=== PATIENT | male | born 1965 | race Caucasian/White ===

== ENCOUNTER 2018-08-04 18:53 | Emergency (ER) | payer BC ==
[2018-08-04] MEDS ORDERED: KETOROLAC TROMETHAMINE 60 MG/2 ML SDV IM ONE (20:15)
[2018-08-04] MEDS ORDERED: ONDANSETRON 4 MG TAB.RAPDIS PO ONE (20:15)
[2018-08-04] MEDS ORDERED: OXYCODONE-ACETAMINOPHEN 5-325 MG TABLET PO ONE (20:15)
--- NOTE | 2018-08-04 20:18 | ER Document Report ---
HPI - HPI Patient complains to provider of: Lower back pain Time Seen by Provider: 08/04/18 19:54 Pain Level: 5 Context: Patient is a 52-year-old male that comes to the emergency department for chief complaint of lower back pain on the left side that goes down the back of his leg on the left side, he states he is also started to feel in his left thigh. He denies any numbness, difficulty urinating, incontinence, fever/chills. He denies injury but he states that he had similar symptoms in the past and eventually got a discectomy. He follows with orthopedics in [place]. He denies any other surgeries, he takes no daily medications, denies smoking, alcohol, recreational drugs. - CONSTITUTIONAL Constitutional: DENIES: Fever, Chills - MUSCULOSKELETAL Musculoskeletal: REPORTS: Extremity pain - left leg Past Medical History - General Information source: Patient, Relative - Social History Smoking Status: Never Smoker Frequency of alcohol use: None Drug Abuse: None Lives with: Spouse/Significant other Family History: Reviewed & Not Pertinent Patient has suicidal ideation: No Patient has homicidal ideation: No Renal/ Medical History: Reports: Hx Kidney Stones. Denies: Hx Peritoneal Dialysis Past Surgical History: Reports: Hx Orthopedic Surgery - Lumbar discectomy - Immunizations Hx Diphtheria, Pertussis, Tetanus Vaccination: No Vertical Provider Document - CONSTITUTIONAL General Appearance: Mild Distress - Patient sitting awkwardly on the bed with his hands underneath his left proximal leg pulling his leg towards his body, appears to be in some pain - INFECTION CONTROL TRAVEL OUTSIDE OF THE [place] IN LAST 30 DAYS: No - HEENT HEENT: Atraumatic, Normocephalic - NECK Neck: Normal Inspection - RESPIRATORY Respiratory: Breath Sounds Normal, No Respiratory Distress - CARDIOVASCULAR Cardiovascular: Regular Rate, Regular Rhythm - GI/ABDOMEN Gastrointestinal: Abdomen Soft, Abdomen Non-Tender - BACK Back: negative: Normal Inspection - Pain with palpation over the left paralumbar musculature, no midline tenderness, no other locations of pain noted. Positive straight leg raise on the left but not the right. No specific tenderness or abnormality noted with the thigh, hip, or lower extremity. Normal distal neurovascular exam. No saddle anesthesia. - MUSCULOSKELETAL/EXTREMETIES Musculoskeletal/Extremeties: MAEW, FROM, Non-Tender - NEURO Level of Consciousness: Awake, Alert, Appropriate Motor/Sensory: No Motor Deficit, No Sensory Deficit - DERM Integumentary: Warm, Dry, No Rash Course - Re-evaluation Re-evalutation: Patient in obvious pain, holding his left knee bent up at the hip, he states it feels better in his back this way but now his thigh is starting to hurt as well. He does not have any midline tenderness. Unremarkable vital signs, no neurological deficits reported, his location of pain in the left lumbar area with pain radiating down the back of his leg is most suggestive of sciatic nerve pain. Thigh seems to be hurting because of the awkward when he is holding his leg to relieve the pain. No history of IV drug abuse, no trauma, no other concerning abnormalities noted. 08/04/18 21:45 Patient reevaluated. He is still in a lot of pain, to the point that he is having difficulty walking. We do not have MRI available at this time. He did not have a fall injury and he does not have midline tenderness suggesting efficacy from a lumbar spinal film. He does not have history of IV drug abuse, fever, or neurological deficit. He states that he would just like to get comfortable enough to follow-up with his orthopedic in [place]. Providing with additional medication. 08/04/18 Patient was reevaluated again, he states he still has pain but on my evaluation he now has his leg relaxed, he is able to get up, stand, walk without difficulty , he appears much improved on evaluation. Vital signs are unremarkable. Because of ongoing pain despite multiple medications I did discuss with patient possibly having a CAT scan performed of his lower back to rule out any acute etiology but he declined. I do not have MRI available time. He does not have any deficits or risk factors reported either. He has no numbness. Abdomen is soft. He states that he can get by with medications, he is already taking ibuprofen at home, provided with some pain medication, he states he has spinal surgery in [place] he can follow with closely already, I discussed return precautions in detail, patient states understanding and agreement. - Vital Signs Vital signs: Temp Pulse Resp BP Pulse Ox 98.2 F 67 16 131/75 H 96 08/04/18 19:03 08/04/18 19:03 08/04/18 19:03 08/04/18 19:03 08/04/18 19:03 Discharge - Discharge Clinical Impression: Left leg pain Lower back pain Qualifiers: Chronicity: acute Back pain laterality: left Sciatica presence: with sciatica Sciatica laterality: sciatica of left side Qualified Code(s): M54.42 - Lumbago with sciatica, left side Condition: Stable Disposition: HOME, SELF-CARE Additional Instructions: Your symptoms are most suggestive of sciatica and muscle spasm although this is not definite. Recommendation is a close follow-up with your orthopedic surgeon, you may need an MRI of the back. Take medications as prescribed, take ibuprofen as well, apply heat to your lower back and leg, and rest. Return if you develop concerning symptoms including numbness, loss of bowel or bladder control, fever of 100.4 or greater, increased pain, or any other concerning or worsening symptoms. Prescriptions: Morphine Sulfate [Morphine Ir 15 Mg Tablet] 15 mg PO TID PRN #12 tablet PRN Reason: Forms: Return to Work Referrals: JAMA CIFUENTES MD [Primary Care Provider] - Follow up as needed
[2018-08-04] MEDS ORDERED: DIAZEPAM INJ 10 MG/2 ML DISP.SYRIN IM ONE (20:59)
[2018-08-04] MEDS ORDERED: DEXAMETHASONE SOD PHOS INJ 10 MG/1 ML VIAL IV ONE (21:44)
[2018-08-04] MEDS ORDERED: HYDROMORPHONE HCL INJ/PF 2 MG/ML AMPULE IV ONE (21:44)
[2018-08-04] MEDS ORDERED: LIDOCAINE 5% (700 MG) TRANSDERMAL ADH..PATCH TP ONE (23:08)
[2018-08-04] MEDS ORDERED: HYDROCODONE/ACETAMINOPHEN 5-325 MG (6 TAB/ER DISP) PO PRN (23:09)
[2018-08-04 23:51] VITALS: BP 119/73
== END 2018-08-04 23:51 | disposition home or self-care (01) ==
LOC: ER 18:53
DX: M54.42 Lumbago with sciatica, left side (principal); M79.605 Pain in left leg; M79.652 Pain in left thigh
CPT/HCPCS: 99283; 96372; 96374; 96375; J3360; J1885; S0119; J1170; J1100